=== PATIENT | female | born 1965 | race African-American/Black ===

== ENCOUNTER 2019-04-18 09:43 | Inpatient (IN) ==
[2019-04-18 12:19] LABS: Albumin 2.9 G/DL (3.4-5.0); Bilirubin,Direct 2.92 MG/DL (0.0-0.20); Bilirubin,Indirect 0.8 MG/DL (0.0-1.0); Bilirubin,Total 3.7 MG/DL (0.2-1.0); Total Protein 7.7 G/DL (6.4-8.3)
[2019-04-18] MEDS ORDERED: ONDANSETRON 4 MG/2 ML VIAL IV PRN (12:27)
[2019-04-18] MEDS ORDERED: ACETAMINOPHEN 325 MG TABLET PO PRN (12:27)
[2019-04-18] MEDS ORDERED: ALPRAZolam 0.5 MG TABLET PO PRN (12:37)
[2019-04-18] MEDS ORDERED: DICYCLOMINE 10 MG CAPSULE PO PRN (12:37)
[2019-04-18] MEDS ORDERED: HYOSCYAMINE 0.125 MG TABLET PO PRN (12:37)
[2019-04-18] MEDS ORDERED: GLUCAGON 1 MG VIAL IM PRN (12:38)
[2019-04-18] MEDS ORDERED: DEXTROSE 50% 25 GM/50 ML VIAL IV PRN (12:38)
[2019-04-18] MEDS ORDERED: HYDROmorphone 2 MG/1 ML VIAL IV STA (12:57)
[2019-04-18] MEDS ORDERED: ONDANSETRON 4 MG/2 ML VIAL IV STA (12:57)
[2019-04-18] MEDS ORDERED: INFLUENZA VIRUS VACCINE 0.5 ML SYRINGE IM ONE (14:06)
[2019-04-18] MEDS: PIPERACILLIN/TAZOBACTAM 3,375 MG in SODIUM CHLORIDE 0.9% 100 ML IV SCH ×2 (14:25→20:41)
[2019-04-18] MEDS: CYCLOBENZAPRINE 10 MG TABLET PO SCH ×2 (14:38→20:39)
[2019-04-18] MEDS: DEXTROSE 5% LACTATED RINGERS 1,000 ML IV SCH (14:38)
[2019-04-18] MEDS: INSULIN LISPRO 100 UNIT/ML SUBCUT SCH (16:13)
[2019-04-18] MEDS: TOPIRAMATE 100 MG TABLET PO SCH (20:39)
[2019-04-18] MEDS: GABAPENTIN 300 MG CAPSULE PO SCH (20:39)
[2019-04-19] MEDS: DEXTROSE 5% LACTATED RINGERS 1,000 ML IV SCH ×3 (02:11→20:24)
[2019-04-19 04:53] LABS: Basophils % 0.5 % (0.0-0.8); Eosinophils # 0.4 10*3/uL (0.0-0.87); Eosinophils % 6.3 % (0.00-10.9); Hematocrit 38.2 VOL% (35.7-47.0); Hemoglobin 12.2 GM/DL (12.0-16.0); Immature Granulocytes % 0.5 %; Immature Granulocytes Absolute 0.03 #; Lymphocytes # 2.1 10*3/uL (1.4-4.0); Lymphocytes % 34.1 % (21.3-54.2); Mean Corpuscular HGB Conc 31.9 GM/DL (32-36); Mean Corpuscular Volume 87.8 FL (87-102); Monocytes % 7.3 % (1.7-12.7); Neutrophils % 51.3 % (38.7-73.9); Platelet Count 349 T/CUMM (130-400); Red Blood Count 4.35 MC/CUMM (3.8-5.5); Red Cell Distribution Width 13.5 % (9.3-17.3); White Blood Count 6.2 T/CUMM (4-12)
[2019-04-19 05:12] LABS: Albumin 2.5 G/DL (3.4-5.0); Bilirubin,Total 2.2 MG/DL (0.2-1.0); Calcium 8.8 MG/DL (8.5-10.1); Osmolality,Calculated 282.1 MOS/KG (273-304); Total Protein 7.1 G/DL (6.4-8.3)
[2019-04-19] MEDS: PIPERACILLIN/TAZOBACTAM 3,375 MG in SODIUM CHLORIDE 0.9% 100 ML IV SCH ×3 (05:13→20:18)
[2019-04-19] MEDS: HYDROmorphone 2 MG/1 ML VIAL IV PRN (05:15)
[2019-04-19] MEDS: INSULIN LISPRO 100 UNIT/ML SUBCUT SCH ×3 (08:44→19:47)
[2019-04-19] MEDS ORDERED: ceFAZolin 1,000 MG in SYRINGE 1 EACH IV ONE (09:14)
[2019-04-19] MEDS ORDERED: INDOMETHACIN SUPP 50 MG SUPP RECTAL ONE (10:56)
[2019-04-19] MEDS: PANTOPRAZOLE 40 MG TABLET PO SCH (11:03)
[2019-04-19] MEDS: CYCLOBENZAPRINE 10 MG TABLET PO SCH ×3 (11:03→20:17)
[2019-04-19] MEDS: CITALOPRAM 20 MG TABLET PO SCH (11:03)
[2019-04-19] MEDS ORDERED: LIDOCAINE 2% 5 ML VIAL ONE (12:12)
[2019-04-19] MEDS ORDERED: fentaNYL 100 MCG/2 ML VIAL ONE (12:12)
[2019-04-19] MEDS ORDERED: propofoL 200 MG/20 ML VIAL IV ONE (12:12)
[2019-04-19] MEDS ORDERED: SEVOFLURANE 1 UNIT/15 MINUTE INH ONE (12:12)
[2019-04-19] MEDS ORDERED: GLYCOPYRROLATE 0.4 MG/2 ML VIAL ONE (12:13)
[2019-04-19] MEDS ORDERED: MIDAZOLAM 2 MG/2 ML VIAL ONE (12:13)
[2019-04-19] MEDS ORDERED: SUCCINYLCHOLINE 200 MG/10 ML VIAL ONE (12:13)
[2019-04-19] MEDS ORDERED: ONDANSETRON 4 MG/2 ML VIAL ONE (12:13)
[2019-04-19] MEDS ORDERED: ROCURONIUM 100 MG/10 ML VIAL IV ONE (12:13)
[2019-04-19] MEDS: GABAPENTIN 300 MG CAPSULE PO SCH (20:17)
[2019-04-19] MEDS: TOPIRAMATE 100 MG TABLET PO SCH (20:18)
[2019-04-20] MEDS: DEXTROSE 5% LACTATED RINGERS 1,000 ML IV SCH ×4 (01:31→18:39)
[2019-04-20] MEDS: PIPERACILLIN/TAZOBACTAM 3,375 MG in SODIUM CHLORIDE 0.9% 100 ML IV SCH ×3 (05:44→21:25)
[2019-04-20 06:15] LABS: Basophils % 0.4 % (0.0-0.8); Eosinophils # 0.3 10*3/uL (0.0-0.87); Eosinophils % 3.9 % (0.00-10.9); Hematocrit 36.3 VOL% (35.7-47.0); Hemoglobin 11.6 GM/DL (12.0-16.0); Immature Granulocytes % 0.3 %; Immature Granulocytes Absolute 0.02 #; Lymphocytes # 1.8 10*3/uL (1.4-4.0); Lymphocytes % 24.4 % (21.3-54.2); Mean Corpuscular Volume 88.8 FL (87-102); Mean Platelet Volume 9.2 FL (9.6-12.0); Monocytes % 6.6 % (1.7-12.7); Neutrophils % 64.4 % (38.7-73.9); Platelet Count 352 T/CUMM (130-400); Red Blood Count 4.09 MC/CUMM (3.8-5.5); Red Cell Distribution Width 13.6 % (9.3-17.3); White Blood Count 7.5 T/CUMM (4-12)
[2019-04-20 06:36] LABS: Albumin 2.4 G/DL (3.4-5.0); Bilirubin,Total 0.8 MG/DL (0.2-1.0); Calcium 8.5 MG/DL (8.5-10.1); Osmolality,Calculated 278.4 MOS/KG (273-304); Total Protein 6.7 G/DL (6.4-8.3)
[2019-04-20] MEDS ORDERED: LIDOCAINE 1%/EPI INJ 20 ML VIAL ONE (08:42)
[2019-04-20] MEDS ORDERED: TISSUE ADHESIVE 1 EACH APPLICATOR TOP ONE (08:42)
[2019-04-20] MEDS ORDERED: BUPIVACAINE MPF 0.25% 30 ML VIAL ONE (08:42)
[2019-04-20] MEDS ORDERED: METHYLENE BLUE 10 ML VIAL IV ONE (10:09)
[2019-04-20] MEDS ORDERED: ONDANSETRON 4 MG/2 ML VIAL IV PRN (11:42)
[2019-04-20] MEDS: HYDROmorphone 2 MG/1 ML VIAL IV PRN ×4 (11:45→15:59)
[2019-04-20] MEDS: CYCLOBENZAPRINE 10 MG TABLET PO SCH ×3 (14:07→21:27)
[2019-04-20] MEDS: INSULIN LISPRO 100 UNIT/ML SUBCUT SCH ×3 (14:07→17:41)
[2019-04-20] MEDS: PANTOPRAZOLE 40 MG TABLET PO SCH (14:09)
[2019-04-20] MEDS ORDERED: propofoL 200 MG/20 ML VIAL IV ONE (14:37)
[2019-04-20] MEDS ORDERED: GLYCOPYRROLATE 0.4 MG/2 ML VIAL ONE (14:38)
[2019-04-20] MEDS ORDERED: LIDOCAINE 2% 5 ML VIAL ONE (14:38)
[2019-04-20] MEDS ORDERED: SEVOFLURANE 1 UNIT/15 MINUTE INH ONE (14:38)
[2019-04-20] MEDS ORDERED: MIDAZOLAM 2 MG/2 ML VIAL ONE (14:38)
[2019-04-20] MEDS ORDERED: ONDANSETRON 4 MG/2 ML VIAL ONE (14:38)
[2019-04-20] MEDS ORDERED: fentaNYL 100 MCG/2 ML VIAL ONE (14:38)
[2019-04-20] MEDS ORDERED: LACTATED RINGERS 1,000 ML IV ONE (14:39)
[2019-04-20] MEDS ORDERED: ROCURONIUM 100 MG/10 ML VIAL IV ONE (14:39)
[2019-04-20] MEDS ORDERED: NEOSTIGMINE 10 MG/10 ML VIAL ONE (14:39)
[2019-04-20] MEDS: CITALOPRAM 20 MG TABLET PO SCH (14:41)
[2019-04-20] MEDS: GABAPENTIN 300 MG CAPSULE PO SCH (21:27)
[2019-04-20] MEDS: TOPIRAMATE 100 MG TABLET PO SCH (21:27)
[2019-04-21] MEDS: PIPERACILLIN/TAZOBACTAM 3,375 MG in SODIUM CHLORIDE 0.9% 100 ML IV SCH ×2 (06:02→13:08)
[2019-04-21] MEDS: DEXTROSE 5% LACTATED RINGERS 1,000 ML IV SCH ×3 (06:48→13:08)
[2019-04-21] MEDS: INSULIN LISPRO 100 UNIT/ML SUBCUT SCH ×2 (07:30→11:39)
[2019-04-21] MEDS: CITALOPRAM 20 MG TABLET PO SCH (08:21)
[2019-04-21] MEDS: CYCLOBENZAPRINE 10 MG TABLET PO SCH (08:21)
[2019-04-21] MEDS: PANTOPRAZOLE 40 MG TABLET PO SCH (08:21)
[2019-04-21 11:20] VITALS: BP 162/84
[2019-04-21 11:20] LABS: Albumin 2.6 G/DL (3.4-5.0); Bilirubin,Direct 0.31 MG/DL (0.0-0.20); Bilirubin,Indirect 0.2 MG/DL (0.0-1.0); Bilirubin,Total 0.5 MG/DL (0.2-1.0); Total Protein 7.2 G/DL (6.4-8.3)
== END 2019-04-21 13:24 | disposition home or self-care (01) | DRG 418 ==
LOC: N.ED 09:43 → N.EDINP 12:25 → N.3E 12:59
PROVIDERS: ADMIT Student in an Organized Health Care Education/Training Program; ATTEND Student in an Organized Health Care Education/Training Program
PROC: ERCPWSP (ICD-10-PCS; 2019-04-19 10:00)
PROC: LAPCHOL (2019-04-20 08:35)